=== PATIENT | female | born 1995 | race Caucasian/White ===

== ENCOUNTER 2017-02-07 19:46 | Emergency (ER) | payer OTHER ==
--- NOTE | 2017-02-07 20:19 | EDPHY ---
H & P Stated Complaint: c/o sorethroat/fever/bodyaches beginning yesterday Time Seen by Provider: 02/07/17 20:08 HPI/ROS: CHIEF COMPLAINT: Sore throat, myalgias HISTORY OF PRESENT ILLNESS: The patient is an 21 y/o female arriving with her father complaining of flu-like symptoms for the last day. She initially noticed a sore throat last night. By this morning she felt diffusely achy and fatigued. She's had no appetite today. She took Advil today for symptoms without significant improvement. She denies headache, cough, vomiting, abdominal pain, or diarrhea. Her friend had strep throat last week. She did not receive a flu vaccination this season. REVIEW OF SYSTEMS: Constitutional: see HPI Eyes: No visual changes ENT: See HPI Respiratory: No cough, no shortness of breath Cardiac: No chest pain Gastrointestinal: no vomiting, no abdominal pain Genitourinary: No hematuria, no dysuria Skin: No rash Neurological: No headache, no numbness, no weakness Psychiatric: No depression - Medical/Surgical History PMH: Denies Hx Asthma: No Hx Chronic Respiratory Disease: No Hx Diabetes: No Hx Cardiac Disease: No Hx Renal Disease: No Hx Cirrhosis: No Hx Alcoholism: No Hx HIV/AIDS: No Hx Splenectomy or Spleen Trauma: No Other PMH: gerd, adenoidectomy - Social History Smoking Status: Never smoked Additional Social History: Nonsmoker. Father at bedside. No PCP. - Physical Exam Exam: General Appearance: Alert, no distress Eyes: Pupils equal and round, no conjunctival pallor or injection ENT, Mouth: Mucous membranes moist, pharyngeal erythema Neck: Shoddy anterior lymphadenopathy Respiratory: Lungs are clear to auscultation Cardiovascular: Regular rate and rhythm Gastrointestinal: Abdomen is soft and non- tender Neurological: A&O, nonfocal, normal gait Skin: Warm and dry, no rash Extremities: Nontender, no pedal edema Psychiatric: Mood and affect normal Constitutional: Initial Vital Signs Temperature (C) 39.1 C H 02/07/17 19:49 Heart Rate 118 H 02/07/17 19:49 Respiratory Rate 16 02/07/17 19:49 Blood Pressure 117/80 02/07/17 19:49 O2 Sat (%) 98 02/07/17 19:49 O2 Delivery Mode Room Air Allergies/Adverse Reactions: Penicillins Allergy (Verified 02/07/17 19:53) Home Medications: Medication Instructions Recorded NK [No Known Home Meds] 02/07/17 Medical Decision Making ED Course/Re-evaluation: This is a normally healthy 21 y/o female who presents with a one-day history of sore throat and myalgias. She has pharyngeal erythema and shoddy anterior lymphadenopathy on exam. Plan for strep swab and flu swab. 6mg PO Decadron administered for symptoms. Strep swab is negative. Reevaluated patient and discussed results. Patient will be discharged with standard viral pharyngitis care and follow up instructions. Return precautions discussed. She and her father agree with plan for discharge. Differential Diagnosis: Differential diagnosis includes but is not limited to pneumonia, otitis media, peritonsillar abscess, retropharyngeal abscess, meningitis. - Data Points Laboratory Results: 02/07/17 02/07/17 Unknown 20:15 Nasal Influenza A PCR NEGATIVE FOR FLU A (NEGATIVE) Nasal Influenza B PCR NEGATIVE FOR FLU B (NEGATIVE) Group A Strep Screen NEGATIVE (NEGATIVE) Group A Strep DNA Pending Medications Given: Discontinued Medications Dexamethasone (Decadron) 6 mg PO EDNOW ONE Stop: 02/07/17 20:30 Last Admin: 02/07/17 20:42 Dose: 6 mg Departure - Departure Disposition: Home, Routine, Self-Care Clinical Impression: Pharyngitis Qualifiers: Pharyngitis/tonsillitis etiology: other specified organisms Qualified Code(s): J02.8 - Acute pharyngitis due to other specified organisms Condition: Good Instructions: Pharyngitis (ED) Additional Instructions: 1. Use Tylenol and ibuprofen for pain and fever over the next few days. 2. Increase fluid intake. 3. Follow up with your primary care provider in the next week for unimproved symptoms. 4. Return to the ED for inability to swallow, difficulty breathing, uncontrollable fever, or other worsening of condition. Adult Pain & Fever Control: We recommend Acetaminophen (Tylenol) and Ibuprofen (Motrin,Advil) for pain and fever control. When fever is high or pain severe, both drugs can be used at the same time, but at different intervals. Please note the time differences. Your dose is: Acetaminophen 650mg every 4 to 6 hours Ibuprofen 600mg every 6-8 hours with food Note: do not take Acetaminophen with Hydrocodone (Vicodin, Lortab) or Oxycodone (Percocet). These medications also contain Acetaminophen. No more than 3000mg of Acetaminophen should be taken in 24 hours (for an adult). Referrals: RAFA BROOKS [Primary Care Provider] - As per Instructions Eileen Rodriguez MD [Medical Doctor] - As per Instructions Report Scribed for: Grace Krishnamurthy Report Scribed by: Giovana Benito Date of Report: 02/07/17 Time of Report: 20:19 Physician Review and Approval Statement: 02/07/17 20:19 Portions of this note were transcribed by a regional medical director. I personally performed a history, physical exam, medical decision making, and confirmed accuracy of information the transcribed note.
[2017-02-07] MEDS ORDERED: DEXAMETHASONE 4 MG TAB PO ONE (20:29)
[2017-02-07 20:35] LABS: STREP SCREEN RAPID NEGATIVE (NEGATIVE)
[2017-02-07 21:08] VITALS: BP 112/60; PULSE 89; RESP 18; TEMP 100.4; O2SAT 97
== END 2017-02-07 21:07 | disposition home or self-care (01) ==
DX: J02.9 Acute pharyngitis, unspecified (principal)

== ENCOUNTER 2017-05-04 18:10 | Emergency (ER) | payer OTHER ==
[2017-05-04 18:15] VITALS: BP 107/64; PULSE 92; RESP 17; TEMP 98.2; O2SAT 98
--- NOTE | 2017-05-04 18:33 | EDPHY ---
H & P Stated Complaint: r ear pain/hearing deficits/exposed to loud music yestrday Time Seen by Provider: 05/04/17 18:24 HPI/ROS: CHIEF COMPLAINT: Hearing loss right ear HISTORY OF PRESENT ILLNESS: Patient is a 21-year-old female who was at a [employer] last night and was standing next to speaker when it was turned on abruptly. She states that it was very loud and since that time she feels that she has had slight hearing loss in her right ear. No buzzing or ringing. No pain. No bleeding. No recent infections. No dizziness. REVIEW OF SYSTEMS: Constitutional: denies: chills, fever, recent illness, recent injury EENTM: See HPI denies: blurred vision, double vision, nose congestion Respiratory: denies: cough, shortness of breath Cardiac: denies: chest pain, irregular heart rate, lightheadedness, palpitations Gastrointestinal/Abdominal: denies: abdominal pain, diarrhea, nausea, vomiting, blood streaked stools Genitourinary: denies: dysuria, frequency, hematuria, pain Musculoskeletal: denies: joint pain, muscle pain Skin: denies: lesions, rash, jaundice, bruising Neurological: denies: headache, numbness, paresthesia, tingling, dizziness, weakness Hematologic/Lymphatic: denies: blood clots, easy bleeding, easy bruising Immunologic/allergic: denies: HIV/AIDS, transplant EXAM: GENERAL: Well-appearing, well-nourished and in no acute distress. HEAD: Atraumatic, normocephalic. EYES: Pupils equal round and reactive to light, extraocular movements intact, sclera anicteric, conjunctiva are normal. ENT: TMs normal not ruptured, no erythema, no tenderness, nares patent, oropharynx clear without exudates. Moist mucous membranes. NECK: Normal range of motion, supple without lymphadenopathy or JVD. LUNGS: Breath sounds clear to auscultation bilaterally and equal. No wheezes rales or rhonchi. HEART: Regular rate and rhythm without murmurs, rubs or gallops. ABDOMEN: Soft, nontender, normoactive bowel sounds. No guarding, no rebound. No masses appreciated. BACK: No CVA tenderness, no spinal tenderness, step-offs or deformities EXTREMITIES: Normal range of motion, no pitting or edema. No clubbing or cyanosis. NEUROLOGICAL: Cranial nerves II through XII grossly intact. Normal speech, normal gait. 5/5 strength, normal movement in all extremities, normal sensation PSYCH: Normal mood, normal affect. SKIN: Warm, dry, normal turgor, no visible rashes or lesions. Source: Patient Exam Limitations: No limitations - Personal History LMP (Females 10-55): 1-7 Days Ago Current Tetanus/Diphtheria Vaccine: Yes - Medical/Surgical History Hx Asthma: No Hx Chronic Respiratory Disease: No Hx Diabetes: No Hx Cardiac Disease: No Hx Renal Disease: No Hx Cirrhosis: No Hx Alcoholism: No Hx HIV/AIDS: No Hx Splenectomy or Spleen Trauma: No Other PMH: gerd, adenoidectomy - Family History Significant Family History: No pertinent family hx - Social History Smoking Status: Never smoked Alcohol Use: Sober Drug Use: None Constitutional: Initial Vital Signs Temperature (C) 36.8 C 05/04/17 18:13 Heart Rate 92 05/04/17 18:13 Respiratory Rate 17 05/04/17 18:13 Blood Pressure 107/64 05/04/17 18:13 O2 Sat (%) 98 05/04/17 18:13 O2 Delivery Mode Room Air Allergies/Adverse Reactions: Penicillins Allergy (Verified 05/04/17 18:11) Home Medications: Medication Instructions Recorded Vestura 3 mg-0.02 mg Tablet 05/04/17 Medical Decision Making ED Course/Re-evaluation: The patient has mild hearing loss. She can speak and converse at normal levels. No sign of trauma. No sign of obstruction or infection. I will refer her to audiology. Differential Diagnosis: Partial list of the Differential diagnosis considered include but were not limited to; a hearing loss, trauma, perforation and although unlikely based on the history and physical exam, I also considered infection, fracture, tumor. I discussed these differential diagnoses and the plan with the patient as well as the usual and expected course. The patient understands that the diagnosis is provisional and that in medicine we are not always correct and that further workup is often warranted. Usual and customary warnings were given. All of the patient's questions were answered. The patient was instructed to return to the emergency department should the symptoms at all worsen or return, otherwise to followup with the physician as we discussed. Departure - Departure Disposition: Home, Routine, Self-Care Clinical Impression: Hearing loss in right ear Qualifiers: Hearing loss type: unspecified Qualified Code(s): H91.91 - Unspecified hearing loss, right ear Condition: Fair Instructions: Hearing Loss (ED) Additional Instructions: Contact the ENT center and asked to make an appointment with an special service representative. Referrals: Erick Romero MD [Medical Doctor] - As per Instructions
== END 2017-05-04 18:35 | disposition home or self-care (01) ==
DX: H91.91 Unspecified hearing loss, right ear (principal)